=== PATIENT | male | born 1950 | race Asian ===

== ENCOUNTER 2016-12-02 09:52 | Inpatient (IN) | payer OTHER ==
[~2016-12-02] VITALS: Ht 167.6 cm; Wt 78.7 kg
[2016-12-02 10:45] LABS: CARBON DIOXIDE 30.4 mmol/L (21-32); CHLORIDE SERUM 100 mmol/L (98-107); GFR1 > 60 mL/min; GLUCOSE SERUM 273 mg/dL (74-106); SODIUM SERUM 137 mmol/L (136-145)
[2016-12-02 10:50] LABS: ALBUMIN 3.8 g/dL (3.4-5.0); ALKALINE PHOSPHATASE 78 U/L (46-116); ALT/SGPT 28 U/L (16-63); AST/SGOT 18 U/L (15-37); BILIRUBIN TOTAL 0.4 mg/dL (0.20-1.00)
[2016-12-02] MEDS ORDERED: ANTIHISTAMINE25 MG PO (11:03)
[2016-12-02 11:06] LABS: BASOPHIL % 0.5 % (0-2); PLATELET COUNT 247 x10^3mcL (130-400); RED CELL DISTRIBUTION WIDTH 13.4 % (11.5-14.5)
[2016-12-02 11:34] LABS: MAGNESIUM 1.8 mg/dL (1.8-2.4); PHOSPHOROUS 2.5 mg/dL (2.5-4.9)
[2016-12-02 11:52] LABS: FREE T4 0.98 ng/dL (0.76-1.46); FREE THYROXINE INDEX 2.5 ug/dL (1.4-4.5); T4(THYROXINE) 7.6 ug/dL (4.7-13.3)
[2016-12-02 12:12] LABS: CHOLESTEROL/HDL RATIO 5.8
[2016-12-02 13:18] LABS: T3 TOTAL 1.11 ng/mL
[2016-12-02 13:43] VITALS: BP 144/75
[2016-12-02 18:34] VITALS: BP 127/71
[2016-12-02 22:09] VITALS: BP 127/64
[2016-12-02 23:39] LABS: microscopic required? NO
[2016-12-02 23:54] LABS: UA SPECIFIC GRAVITY <=1.005 (1.005-1.035); urine erythrocyte NEGATIVE (NEGATIVE)
[2016-12-03 00:05] LABS: AMPHETAMINE QUAL UR NONE DETECTED (NEG <=1000)
[2016-12-03 06:07] VITALS: BP 119/68
[2016-12-03 06:30] LABS: CALCIUM 8.1 mg/dL (8.5-10.1); CARBON DIOXIDE 26.8 mmol/L (21-32); CHLORIDE SERUM 110 mmol/L (98-107); CREATININE SERUM 0.8 mg/dL (0.7-1.3); GFR1 > 60 mL/min; GLUCOSE SERUM 125 mg/dL (74-106); POTASSIUM SERUM 3.9 mmol/L (3.5-5.1); SODIUM SERUM 145 mmol/L (136-145)
[2016-12-03 06:46] LABS: BASOPHIL % 0.5 % (0-2); PLATELET COUNT 221 x10^3mcL (130-400); RED CELL DISTRIBUTION WIDTH 13.4 % (11.5-14.5)
[2016-12-03 08:23] VITALS: BP 113/53
[2016-12-03 14:13] VITALS: BP 124/69
== END 2016-12-03 14:46 | disposition left against medical advice (07) | DRG 206 ==
LOC: ED 09:52 → DU 10:56
PROVIDERS: Emergency Medicine; ADMIT Student in an Organized Health Care Education/Training Program
DX: M94.0 Chondrocostal junction syndrome [Tietze] (principal); D68.69 Other thrombophilia; E11.59 Type 2 diabetes mellitus with other circulatory complications; E11.65 Type 2 diabetes mellitus with hyperglycemia; I10 Essential (primary) hypertension; E78.5 Hyperlipidemia, unspecified; F41.9 Anxiety disorder, unspecified; Z68.28 Body mass index [BMI] 28.0-28.9, adult; Z91.120 Patient's intentional underdosing of medication regimen due to financial hardship; Z22.322 Carrier or suspected carrier of Methicillin resistant Staphylococcus aureus
CPT/HCPCS: 83880; 84439; J7030